=== PATIENT | male | born 1955 | race Caucasian/White ===

== ENCOUNTER 2023-03-15 10:18 | Inpatient (IN) ==
[2023-03-15] MEDS ORDERED: ONDANSETRON 4 MG/2 ML VIAL IV ONE (10:53)
[2023-03-15] MEDS ORDERED: 0.9 % SODIUM CHLORIDE 1,000 ML IV ONE ×2 (10:53→13:48)
[2023-03-15 11:21] LABS: POC Calcium, Ionized 1.05 (1.16-1.32); POC Creatinine 2.5 (0.6-1.2); POC Potassium 4.5 (3.3-5.1)
[2023-03-15] MEDS ORDERED: HYDROmorphone 0.5 MG/0.5 ML SYRINGE IV ONE (11:24)
[2023-03-15 11:56] LABS: Basophils # (Auto) 0.02 K/mcL (0.00-0.30); Basophils % (Auto) 0.2 % (0.0-2.0); Eosinophils # (Auto) 0.04 K/mcL (0.00-0.70); Eosinophils % (Auto) 0.3 % (0.0-7.0); Hemoglobin 14.7 g/dL (13.7-17.5); Lymphocytes # (Auto) 0.59 K/mcL (1.50-4.80); Lymphocytes % (Auto) 4.9 % (15.5-49.0); Mean Cell Volume 87.5 fL (80.0-100.0); Mean Platelet Volume 8.6 fL (8.8-12.5); Monocytes % (Auto) 10.9 % (1.0-12.0); Neutrophils % (Auto) 80.9 % (38.0-78.0); Platelet Count 373 K/mcL (140-440); Red Cell Distribution Width 12.5 % (11.5-14.5)
[2023-03-15 12:23] LABS: ALT/SGPT 45 U/L (<40); AST/SGOT 20 U/L (<40); Albumin 3.9 gm/dL (3.2-5.2); Alkaline Phosphatase 102 U/L (39-117); Bilirubin,Direct 0.3 mg/dL (<0.3); Bilirubin,Total 1.1 mg/dL (0.1-1.0); Globulin 2.9 gm/dL (2.2-3.7)
[2023-03-15 13:51] LABS: Appearance,Urine HAZY (Clear); Bilirubin,Urine Negative (Negative); Color,Urine AMBER; Culture Indicated,Urine No; Glucose,Urine (UA) Negative (Negative); Ketones,Urine Negative (Negative); Leukocyte Esterase,Urine Negative /uL (Negative); Mucus,Urine MANY /hpf; Nitrate,Urine Negative (Negative); Protein,Urine Negative (Negative); Specific Gravity,Urine 1.017 (1.000-1.035); Urine Blood 0.03 mg/dL (Negative); Urine Hyaline Cast 40 /lph (0-2); Urine RBC 1 /hpf (0-3); Urine Squamous Epithelial Cell 1 /hpf (0-4); Urine WBC 2 /hpf (0-4); Urobilinogen,Urine Negative
[2023-03-15] MEDS: LACTATED RINGERS 1,000 ML IV SCH (17:31)
[2023-03-15] MEDS: ONDANSETRON HCL 8 MG PO SCH (17:32)
[2023-03-15] MEDS: ONDANSETRON 4 MG/2 ML VIAL IV PRN ×2 (17:32→23:17)
[2023-03-15] MEDS: DOCUSATE SODIUM 100 MG CAPSULE PO SCH (20:17)
[2023-03-15] MEDS: 0.9 % SODIUM CHLORIDE 10 ML SYRINGE IV SCH (20:17)
[2023-03-15] MEDS: SENNOSIDES 1 TABLET PO SCH (20:17)
[2023-03-15] MEDS: HEPARIN 5,000 UNIT/ML VIAL SQ SCH (21:06)
[2023-03-15] MEDS: LOPERAMIDE 2 MG CAPSULE PO SCH (21:06)
[2023-03-16] MEDS: ONDANSETRON HCL 8 MG PO SCH (01:02)
[2023-03-16] MEDS: LACTATED RINGERS 1,000 ML IV SCH ×3 (01:02→16:22)
[2023-03-16] MEDS: 0.9 % SODIUM CHLORIDE 10 ML SYRINGE IV SCH ×3 (05:18→22:09)
[2023-03-16] MEDS: ONDANSETRON 4 MG/2 ML VIAL IV PRN (08:09)
[2023-03-16] MEDS: TAMSULOSIN 0.4 MG CAPSULE PO SCH (08:09)
[2023-03-16] MEDS: LOPERAMIDE 2 MG CAPSULE PO SCH ×3 (08:09→17:01)
[2023-03-16] MEDS: DOCUSATE SODIUM 100 MG CAPSULE PO SCH ×2 (08:17→20:34)
[2023-03-16] MEDS ORDERED: ONDANSETRON 4 MG ODT TABLET PO SCH (08:45)
[2023-03-16] MEDS: HEPARIN 5,000 UNIT/ML VIAL SQ SCH ×2 (09:08→20:33)
[2023-03-16] MEDS: OMEPRAZOLE 20 MG CAPSULE PO SCH (09:08)
[2023-03-16] MEDS: RIFAXIMIN 550 MG TABLET PO SCH ×3 (09:33→20:33)
[2023-03-16] MEDS: ONDANSETRON 4 MG ODT TABLET PO SCH ×2 (14:24→22:09)
[2023-03-16] MEDS: oxyCODONE IR 5 MG TABLET PO PRN ×2 (14:32→22:13)
[2023-03-16 16:06] LABS: Basophils # (Auto) 0.04 K/mcL (0.00-0.30); Basophils % (Auto) 0.4 % (0.0-2.0); Eosinophils # (Auto) 0.05 K/mcL (0.00-0.70); Eosinophils % (Auto) 0.5 % (0.0-7.0); Hematocrit 39.5 % (40.1-51.0); Hemoglobin 13.9 g/dL (13.7-17.5); Lymphocytes # (Auto) 0.69 K/mcL (1.50-4.80); Lymphocytes % (Auto) 7.5 % (15.5-49.0); Mean Cell Volume 88.8 fL (80.0-100.0); Mean Corpuscular HGB Conc 35.2 g/dL (31.0-36.0); Mean Platelet Volume 8.7 fL (8.8-12.5); Monocytes # (Auto) 1.09 K/mcL (0.10-0.90); Monocytes % (Auto) 11.9 % (1.0-12.0); Neutrophils % (Auto) 77.5 % (38.0-78.0); Platelet Count 404 K/mcL (140-440); RBC 4.45 M/mcL (4.63-6.08); Red Cell Distribution Width 12.6 % (11.5-14.5); WBC 9.2 K/mcL (4.5-11.0)
[2023-03-16 16:09] LABS: Blood Urea Nitrogen 25 mg/dL (8-23); Calcium 8.9 mg/dL (8.6-10.4); Carbon Dioxide 32 mmol/L (22-30); Chloride 87 mmol/L (96-108); Glomerular Filtration Rate 48; Glucose 98 mg/dL (70-105); Phosphorous 3.7 mg/dL (2.5-4.5)
[2023-03-16] MEDS: SENNOSIDES 1 TABLET PO SCH (20:34)
[2023-03-17] MEDS: LACTATED RINGERS 1,000 ML IV SCH (00:25)
[2023-03-17] MEDS: 0.9 % SODIUM CHLORIDE 10 ML SYRINGE IV SCH (05:36)
[2023-03-17] MEDS: ONDANSETRON 4 MG ODT TABLET PO SCH (05:36)
[2023-03-17 07:35] LABS: Blood Urea Nitrogen 13 mg/dL (8-23); Calcium 8.3 mg/dL (8.6-10.4); Carbon Dioxide 30 mmol/L (22-30); Chloride 92 mmol/L (96-108); Glomerular Filtration Rate 78; Glucose 86 mg/dL (70-105)
[2023-03-17] MEDS: LOPERAMIDE 2 MG CAPSULE PO SCH ×2 (07:52→11:46)
[2023-03-17] MEDS: RIFAXIMIN 550 MG TABLET PO SCH (09:28)
[2023-03-17] MEDS: OMEPRAZOLE 20 MG CAPSULE PO SCH (09:28)
[2023-03-17] MEDS: TAMSULOSIN 0.4 MG CAPSULE PO SCH (09:28)
[2023-03-17] MEDS: DOCUSATE SODIUM 100 MG CAPSULE PO SCH (09:29)
[2023-03-17] MEDS: HEPARIN 5,000 UNIT/ML VIAL SQ SCH (09:29)
== END 2023-03-17 14:05 | disposition home health service (06) | DRG 641 ==
LOC: ED 10:18 → MEDSUR 17:06
PROVIDERS: ADMIT Student in an Organized Health Care Education/Training Program; ATTEND Student in an Organized Health Care Education/Training Program